=== PATIENT | female | born 1965 | race Hispanic/Latino ===

== ENCOUNTER 2019-03-15 11:41 | Outpatient (CLI) | payer OTHER ==
--- NOTE | 2019-03-15 12:05 | RAD ---
EXAM: Chest PA and lateral: HISTORY: Abnormal outside chest x-ray. No comparison available. COMPARISON: none FINDINGS: Lung alvares are clear. Vascular markings are normal. Heart and mediastinum appear unremarkable. Osseous structures are unremarkable. IMPRESSION: Unremarkable chest
== END 2019-03-15 11:42 | disposition home or self-care (01) ==
LOC: BICRAD 11:41
PROVIDERS: ATTEND Family Medicine
DX: R91.8 Other nonspecific abnormal finding of lung field (principal)
CPT/HCPCS: 71046

== ENCOUNTER 2021-01-21 14:51 | Outpatient (CLI) | payer OTHER | END 2021-01-21 14:52 | disposition home or self-care (01) | LOC: BICRAD 14:51 | PROVIDERS: ATTEND Family Medicine | DX: U07.1 COVID-19 (principal); R05 Cough | CPT/HCPCS: 71046 ==

== ENCOUNTER 2021-07-09 13:07 | Outpatient (CLI) | payer OTHER | END 2021-07-09 13:08 | disposition home or self-care (01) | LOC: BICRAD 13:07 | PROVIDERS: ATTEND Family Medicine | DX: M25.561 Pain in right knee (principal) ==